=== PATIENT | female | born 1990 | race Caucasian/White ===

== ENCOUNTER 2017-08-21 19:05 | Emergency (ER) | payer BC, OTHER ==
[~2017-08-21] VITALS: Ht 172.7 cm; Wt 59.9 kg
[2017-08-21 19:48] LABS: *BLOOD, URINE 2+ (NEGATIVE); *CLARITY,URINE CLOUDY (CLEAR); *COLOR,URINE DARK YELLOW (YELLOW); *KETONES,URINE TRACE (NEGATIVE); *PROTEIN,URINE 2+ (NEGATIVE); *URINE HCG, QUAL NEGATIVE (NEGATIVE); *UROBILINOGEN,URINE 0.2 E.U./dl (NORMAL); NITRITE, URINE NEGATIVE (NEGATIVE); PH,URINE 5.5 (5.0-8.0); UGLUCOSE NEGATIVE (NEGATIVE)
[2017-08-21 19:58] LABS: *BILIRUBIN,URIN NEGATIVE (NEGATIVE); LEUKOCYTE ESTERASE ,URINE 2+ (NEGATIVE)
[2017-08-21 19:59] LABS: BACTERIA,URINE MODERATE /HPF (NONE SEEN); RBC,URINE 50-80 /HPF (0-3); SQUAMOUS EPITHELIAL CELL,UR MODERATE /HPF (NONE SEEN); WBC,URINE 80-100 /HPF (0-3)
[2017-08-21 20:00] LABS: MUCUS,URINE MODERATE /LPF (0-FEW)
[2017-08-21] MEDS ORDERED: NITROFURANTOIN/NITROFURAN MAC 100 MG CAPSULE PO ONE (20:15)
[2017-08-21] MEDS ORDERED: PHENAZOPYRIDINE HCL 100 MG TABLET PO ONE (20:15)
--- NOTE | 2017-08-21 20:18 | NUR ---
Patient discharged to home in stable conditon. Written and verbal after care instructions given. Patient verbalizes understanding of instructions. walked out of Er with no distress noted
[2017-08-21 20:19] VITALS: BP 126/80
[2017-08-21] MEDS ORDERED: PHENAZOPYRIDINE HCL 100 MG TABLET ONE (20:27)
[2017-08-21] MEDS ORDERED: NITROFURANTOIN/NITROFURAN MAC 100 MG CAPSULE ONE (20:27)
== END 2017-08-21 20:19 | disposition home or self-care (01) ==
LOC: ER 19:07
DX: N30.90 Cystitis, unspecified without hematuria (principal); F17.200 Nicotine dependence, unspecified, uncomplicated
CPT/HCPCS: 84703; A4663